=== PATIENT | female | born 1950 | race Caucasian/White ===

== ENCOUNTER → 2018-12-13 | Day surgery (SDC) | payer MEDICARE, BC ==
[~2018-12-13] MED LIST: Lactated Ringers 1,000 ML IV SCH; Propofol 200 MG/20 ML SDV IV ONE
--- NOTE | 2018-12-13 11:15 | OR ---
DATE OF OPERATION: 12/13/2018 PREOPERATIVE DIAGNOSIS: FAMILY HISTORY OF COLON CANCER. POSTOPERATIVE DIAGNOSIS: FAMILY HISTORY OF COLON CANCER. SURGEON: Irineo Bay MD PROCEDURE: SCREENING COLONOSCOPY WITH SNARE POLYPECTOMY X3. ANESTHESIA: MAC via GLOBE CLEANER. COMPLICATIONS: None. SPECIMEN: Tubular adenomas x3, see report. FINDINGS: 1. Full-length colonoscopy. 2. Three tubular adenomas, all approximately 0.5 cm in size. RECOMMENDATIONS: Followup colonoscopy in 3 years. INDICATIONS: The patient agreed to a colonoscopy. She has a strong family history of colon cancer, most notably in a son and she agreed to proceed with screening exam. DESCRIPTION OF PROCEDURE: The patient was prepped and draped, placed in the left lateral decubitus position. A lubricated Olympus colonoscope was inserted and easily advanced to the cecum. Direct visualization of the ileocecal valve and appendiceal orifice was accomplished. The bowel prep was adequate. There was liquid stool present throughout, but we were able to irrigate and suction most of it. Upon withdrawal, the cecum and proximal ascending colon were benign. In the distal ascending colon near the hepatic flexure, the patient had a small tubular adenoma, approximately 4 to 5 mm in size removed with a snare and suctioned into polyp trap #1. She had a 2nd tubular adenoma just on the transverse colon side of the hepatic flexure also removed with snare and suctioned into polyp trap #2. The rest of the transverse colon was benign. Just past the splenic flexure, in the proximal descending colon, the patient had her 3rd polyp removed with a snare and suctioned into polyp trap #3 without complication. This also was a tubular adenoma approximately 0.5 cm in size. The patient throughout the sigmoid and rectosigmoid junction had no other polyps, masses, ulceration, or bleeding sites. No vascular abnormalities or signs of colitis. There were no diverticula. The rectal vault was benign. Retroflexion of the scope in the rectum showed no anal lesions. Air was suctioned, scope removed without complication. OCTAVIANO/RAMY /[id number]
== END ==
LOC: CC.SDS 07:38
PROVIDERS: ATTEND Family Medicine
DX: Z12.11 Encounter for screening for malignant neoplasm of colon (principal); D12.3 Benign neoplasm of transverse colon; Z80.0 Family history of malignant neoplasm of digestive organs; I10 Essential (primary) hypertension; E11.9 Type 2 diabetes mellitus without complications; E03.9 Hypothyroidism, unspecified; E78.00 Pure hypercholesterolemia, unspecified; E53.8 Deficiency of other specified B group vitamins; F41.9 Anxiety disorder, unspecified; M51.36 Other intervertebral disc degeneration, lumbar region; M17.10 Unilateral primary osteoarthritis, unspecified knee; M19.079 Primary osteoarthritis, unspecified ankle and foot; Z79.4 Long term (current) use of insulin; Z79.899 Other long term (current) drug therapy
CPT/HCPCS: 45385; J2704; J7120

== ENCOUNTER 2022-06-29 15:19 | Observation (INO) | payer MEDICARE, BC ==
[2022-06-29 16:07] LABS: CHLORIDE,CL 100 mEq/L (98-106); SODIUM,NA 138 mEq/L (136-145)
[2022-06-29 16:21] LABS: ESTIMATED GFR 48 mL/min (>=60)
[2022-06-29] MEDS ORDERED: Sodium Chloride 0.9% 10 ML Syringe FLUSH PRN (17:32)
[2022-06-29] MEDS ORDERED: Sodium Chloride 0.9% 1,000 ML IV SCH ×3 (17:45)
[2022-06-29] MEDS ORDERED: Docusate Sodium 100 MG Cap PO PRN (18:24)
[2022-06-29] MEDS ORDERED: Acetaminophen 325 MG Tab PO PRN (18:24)
[2022-06-29] MEDS ORDERED: Amitriptyline 25 MG Tab PO SCH (20:00)
[2022-06-29] MEDS ORDERED: AMITRIPTYLINE 25 MG PO SCH (20:00)
[2022-06-30] MEDS ORDERED: Pantoprazole 40 MG Tab.CR PO SCH (07:00)
[2022-06-30] MEDS ORDERED: Levothyroxine 50 MCG Tab PO SCH (07:00)
[2022-06-30] MEDS ORDERED: Lisinopril 20 MG Tab PO SCH (08:00)
[2022-06-30] MEDS ORDERED: metFORMIN 500 MG Tab PO SCH ×3 (08:00→12:00)
[2022-06-30] MEDS ORDERED: Metoprolol Succinate 100 MG Tab.ER PO SCH (08:00)
[2022-06-30] MEDS ORDERED: Non-Formulary Medication 1 Each (Liraglutide [Victoza] 18 MG/3 ML Pen) SQ SCH (08:00)
[2022-06-30] MEDS ORDERED: Magnesium Chloride 64 MG Tab.ER PO SCH (08:00)
[2022-06-30] MEDS ORDERED: METOPROLOL SUCCINATE 50 MG PO SCH (08:30)
[2022-06-30] MEDS ORDERED: Lisinopril 20 MG Tab **PTOM PO SCH (08:30)
[2022-06-30] MEDS ORDERED: METFORMIN 1000 MG PO SCH (12:00)
[2022-06-30] MEDS ORDERED: Sodium Chloride 0.9% 1,000 ML IV ONE (13:16)
[2022-07-01] MEDS ORDERED: OMEPRAZOLE 20 MG PO SCH (07:00)
[2022-07-01] MEDS ORDERED: Lisinopril 20 MG Tab **PTOM PO SCH (08:00)
[2022-07-01] MEDS ORDERED: METOPROLOL SUCCINATE 50 MG PO SCH (08:00)
== END 2022-06-30 15:58 | disposition home or self-care (01) ==
LOC: CC.MS 15:19 → CC.FCMC 15:19 → UNDOADMOB 16:47 → CC.MS 16:47
PROVIDERS: ADMIT Family Medicine; ATTEND Nurse Practitioner Family
DX: U07.1 COVID-19 (principal); M62.82 Rhabdomyolysis; M79.10 Myalgia, unspecified site; R53.83 Other fatigue; Z79.899 Other long term (current) drug therapy
CPT/HCPCS: 36415; 80053; 81001; 82550; 82607; 83605; 83735; 85025; 85651; 86140; 96360; 96361; A9270-GY; G0378; J7030